=== PATIENT | male | born 1955 | race Caucasian/White ===

== ENCOUNTER 2020-12-12 15:24 | Emergency (ER) | payer BC ==
[~2020-12-12] VITALS: Ht 182.9 cm; Wt 113.6 kg
[2020-12-12] MEDS ORDERED: BISO5TAB14 PO (16:04)
[2020-12-12] MEDS ORDERED: LAMO200T3 PO (16:04)
[2020-12-12] MEDS ORDERED: FLUO40CA PO (16:04)
[2020-12-12] MEDS ORDERED: SIMV20TA22 PO (16:04)
[2020-12-12] MEDS ORDERED: METF-877 PO (16:04)
[2020-12-12] MEDS ORDERED: LISI40TA4 PO (16:04)
[2020-12-12] MEDS ORDERED: CLAR10CA3 PO (16:12)
[2020-12-12] MEDS ORDERED: FLON1SPR (16:12)
[2020-12-12] MEDS ORDERED: ECOT81TA5 PO (16:12)
[2020-12-12 18:21] LABS: BASO % 0.4 % (0.0-1.0); EOS # 0.2 10^3/uL (0.0-0.5); HEMOGLOBIN 10.9 g/dl (13.5-17.5); LYMPH # 1.5 10^3/uL (1.5-5.0); LYMPH % 19.6 % (24.0-44.0); MEAN CORPUSCULAR HGB CONC 32.1 g/dl (32.0-36.5); MEAN CORPUSCULAR VOLUME 93.7 fl (80.0-96.0); MONO # 0.5 10^3/uL (0.0-0.8); NEUTROPHILS # 5.3 10^3/uL (1.5-8.5); NEUTROPHILS % 70.7 % (36.0-66.0); PLATELET COUNT, AUTOMATED 253 10^3/uL (150-450); RED BLOOD COUNT 3.63 10^6/uL (4.30-6.10); WHITE BLOOD COUNT 7.6 10^3/uL (4.0-10.0)
[2020-12-12 18:45] LABS: ERYTHROCYTE SEDIMENTATION RATE 49 mm/hr (0-20)
[2020-12-12 19:00] LABS: C REACTIVE PROTEIN QUANTITATIV 0.4 MG/DL (0.00-0.30); CALCIUM LEVEL 8.9 MG/DL (8.8-10.2); CREATININE FOR GFR 1.51 MG/DL (0.70-1.30); GLOMERULAR FILTRATION RATE 49.8 (>49); POTASSIUM SERUM 5.7 MEQ/L (3.5-5.1); URIC ACID 8.6 MG/DL (3.5-7.2)
--- NOTE | 2020-12-12 19:16 | REP ---
INDICATION: r/o dvt to LLE. COMPARISON: None. TECHNIQUE: Multiple ultrasonographic images of the deep venous structures of the left lower extremity were obtained from the inguinal ligament to the ankle. Venous compression techniques, color doppler imaging, and augmentation techniques were also obtained where appropriate. As per the ACR guidelines the anterior tibial vein can not be effectively evaluated. Only compression techniques in the calf on the peroneal and posterior tibial veins was attempted/performed. FINDINGS: There is no abnormal echogenic material seen within any of the visualized deep venous structures that would suggest acute thrombosis. Coaptation is unremarkable throughout. Doppler interrogation shows an expected response to respiratory variability and augmentation in the thigh. Compression techniques in the calf showed were unobtainable. The color flow images show what appears to be a normal vascular pattern throughout the thigh. IMPRESSION: There is no ultrasonographic evidence of deep venous thrombosis involving any of the visualized deep venous structures of the left lower extremity as described above. Due to technical parameters calf vein DVT can not be ruled out. <Electronically signed by Omkar Burris > 12/12/201911
--- NOTE | 2020-12-12 19:18 | REP ---
INDICATION: Left foot swelling, diabetic. COMPARISON: None. TECHNIQUE: Four views FINDINGS: Degenerative changes are seen throughout the foot particularly the midfoot region. Plantar and retrocalcaneal heel spurs are also identified. Is no evidence of an acute fracture. There appears to be soft tissue swelling the lateral soft tissues at the level of the 5th metatarsal phalangeal joint. IMPRESSION: Chronic changes. Soft tissue swelling which needs to be correlated clinically. <Electronically signed by Omkar Burris > 12/12/20 [id number]
[2020-12-12 20:24] LABS: CALCIUM LEVEL 9.2 MG/DL (8.8-10.2); CREATININE FOR GFR 1.41 MG/DL (0.70-1.30); GLOMERULAR FILTRATION RATE 53.9 (>49); POTASSIUM SERUM 5.7 MEQ/L (3.5-5.1)
[2020-12-12] MEDS ORDERED: PRED20TA PO (20:56)
[2020-12-12 21:12] VITALS: BP 138/84
== END 2020-12-12 21:14 | disposition home or self-care (01) ==
LOC: M ED 15:24
DX: M10.9 Gout, unspecified (principal); R22.42 Localized swelling, mass and lump, left lower limb; N28.9 Disorder of kidney and ureter, unspecified; E11.42 Type 2 diabetes mellitus with diabetic polyneuropathy; I10 Essential (primary) hypertension; E78.5 Hyperlipidemia, unspecified; Z79.899 Other long term (current) drug therapy; Z79.82 Long term (current) use of aspirin; Z79.84 Long term (current) use of oral hypoglycemic drugs

== ENCOUNTER → 2021-11-12 | Outpatient (CLI) | payer MEDICARE ==
[~2021-11-12] MED LIST: BISO5TAB14 PO; CLAR10CA3 PO; ECOT81TA5 PO; FLON1SPR; FLUO40CA PO; LAMO200T3 PO; LISI40TA4 PO; METF-877 PO; PRED20TA PO; SIMV20TA22 PO
== END ==
LOC: M WUC 14:54
PROVIDERS: ATTEND Family Medicine
DX: S90.31XA Contusion of right foot, initial encounter (principal); X58.XXXA Exposure to other specified factors, initial encounter; Y92.89 Other specified places as the place of occurrence of the external cause